=== PATIENT | female | born 1950 | race Caucasian/White ===

== ENCOUNTER 2019-01-17 08:43 | Inpatient (IN) | payer MEDICARE, BC ==
--- NOTE | 2019-01-14 11:31 | HP ---
DATE OF SURGERY: 01/17/2019 ANTICIPATED PROCEDURES: 1) Low anterior resection. 2) Completion colonoscopy. HISTORY OF PRESENT ILLNESS: The patient has rectovaginal fistula. Referred by Dr. Euceda. PAST MEDICAL HISTORY: ALLERGIES: PENICILLIN, SULFA. MEDICATIONS: Metformin, Bystolic. PAST SURGICAL HISTORY: Total hysterectomy 2006. Cholecystectomy 2003. SOCIAL HISTORY: Negative. FAMILY HISTORY: Negative. REVIEW OF SYSTEMS: Prediabetic. Hypertension. PHYSICAL EXAMINATION: VITAL SIGNS: Normal. CHEST: Clear. COR: Regular. ABDOMEN: Satisfactory. LAB DATA AND TESTS: Barium enema performed inserted balloon tip insufflated, diluted Gastrografin. A rectovaginal fistula was identified right of midline. Fistula precludes further distention of the entire colon as the preference was going through the fistula ultimately the vagina. Multiple focal intraluminal narrowing seen of the mid descending colon, sigmoid possibly due to scarring or mass or not completely filled. This was performed at [facility] read by Dr. Donald Coello. IMPRESSION: Rectovaginal fistula. PLAN: Surgical intervention, surgical resection is indicated and completion colonoscopy is indicated.
[~2019-01-17 08:43] MED LIST: CLINDAMYCIN-D5W 900 MG/50 ML*** 900 MG/50 ML BAG IV SCH; ENTEREG 12 MG PO SCH; Lactated Ringers 1,000 ML IV ONE; Levofloxacin 500MG/100ML D5W 500 MG/100 ML BAG IV ONE; Levofloxacin 500MG/100ML D5W 500 MG/100 ML BAG IV SCH
[2019-01-17] MEDS ORDERED: Lactated Ringers 1,000 ML IV SCH (09:00)
[2019-01-17 10:00] LABS: ABO TYPING O; Antibody Screen NEGATIVE (NEGATIVE); RH TYPING POSITIVE
[2019-01-17] MEDS ORDERED: Levofloxacin 500MG/100ML D5W 500 MG/100 ML BAG IV SCH (10:00)
[2019-01-17] MEDS ORDERED: CLINDAMYCIN-D5W 900 MG/50 ML*** 900 MG/50 ML BAG IV SCH (10:00)
[2019-01-17] MEDS ORDERED: ENTEREG 12 MG PO SCH (10:30)
[2019-01-17] MEDS ORDERED: Lactated Ringers 1,000 ML IV ONE (12:02)
[2019-01-17 13:42] LABS: Appearance CLOUDY (CLEAR); Bacteria MODERATE /HPF (NEGATIVE); Bilirubin NEGATIVE (NEGATIVE); Blood NEGATIVE Ery/ul (0-5); Epithelial Cells RARE /HPF (FEW); Glucose NEGATIVE (NEGATIVE); Hyaline Casts >50 /LPF (0-2); Ketones NEGATIVE (NEGATIVE); Leukocyte Esterase NEGATIVE (NEGATIVE); Mucus MANY /HPF (NEGATIVE); Nitrite NEGATIVE (NEGATIVE); Protein,Urine Dip 30 (Negative); Specific Gravity 1.015 (1.005-1.025); Urobilinogen NEGATIVE mg/dL (0-1)
[2019-01-17] MEDS ORDERED: Morphine PCA 1 MG/ML 30 ML IV PRN (13:45)
[2019-01-17] MEDS ORDERED: TYLENOL 325 MG PO PRN (13:46)
[2019-01-17] MEDS ORDERED: Zofran 4 MG/2 ML VIAL IVIM PRN (13:47)
[2019-01-17] MEDS ORDERED: FEVERALL 650 MG RC PRN (13:47)
[2019-01-17] MEDS ORDERED: BRIDION 200MG/2ML IV ONE (13:58)
[2019-01-17] MEDS ORDERED: Marcaine Mpf 0.5% Vial 30 Ml IV ONE (13:58)
[2019-01-17] MEDS ORDERED: Zofran 4 MG/2 ML VIAL IV ONE (13:58)
[2019-01-17] MEDS ORDERED: DIPRIVAN 200 MG/20 ML IV ONE (13:58)
[2019-01-17] MEDS ORDERED: Zemuron 100 MG/10 ML IV ONE (13:58)
[2019-01-17] MEDS: D5W/0.45NS W/ 20mEq KCl 1000 ML 1,000 ML IV SCH ×2 (14:04→17:19)
[2019-01-17] MEDS: MEFOXIN 1 Gm/ D5W 50 Ml** 1 G/50 ML ML IV SCH ×2 (14:11→21:50)
[2019-01-17] MEDS ORDERED: DILAUDID 2 MG INJECTION IV ONE (14:19)
[2019-01-17] MEDS ORDERED: SUBLIMAZE 250 MCG/5 ML IJ ONE (14:19)
[2019-01-17] MEDS ORDERED: Versed 2 MG/2 ML Injection IV ONE (14:19)
[2019-01-17 14:44] LABS: Hemoglobin 13.2 gm/dl (12.0-16.0)
[2019-01-17] MEDS ORDERED: Sodium Chloride 0.9% 1000 ML 1,000 ML IV STA (15:31)
[2019-01-17] MEDS ORDERED: Sodium Chloride 0.9% 1000 ML 1,000 ML ONE (15:34)
[2019-01-17] MEDS: Bystolic 5 MG PO SCH (21:59)
[2019-01-17] MEDS: Glucophage 500 MG PO SCH (21:59)
[2019-01-17] MEDS: FISH OIL 1,000 MG CAPSULE PO SCH (21:59)
[2019-01-17] MEDS ORDERED: NON-FORMULARY ITEM (Nebivolol Hcl [Bystolic] 5 MG) PO SCH (22:00)
[2019-01-18] MEDS: MEFOXIN 1 Gm/ D5W 50 Ml** 1 G/50 ML ML IV SCH ×4 (02:10→20:24)
[2019-01-18] MEDS: D5W/0.45NS W/ 20mEq KCl 1000 ML 1,000 ML IV SCH ×2 (04:27→13:24)
[2019-01-18 05:04] LABS: Hematocrit 35.9 % (35-47); Hemoglobin 11.8 gm/dl (12.0-16.0); Mean Cell Volume 100.3 fl (78-100); Mean Corpuscular Hgb Concent. 32.9 g/dl (32-36); Mean Platelet Volume 10.5 fl (6-9.5); Platelet Count 248 K/mm3 (150-450); Red Blood Count 3.58 M/mm3 (4.1-5.4); White Blood Count 17.6 K/mm3 (4.0-10.5)
[2019-01-18 05:25] LABS: BLOOD UREA NITROGEN 9 mg/dL (7-17); CHLORIDE 104 mmol/L (98-107); Calcium 8.5 mg/dL (8.4-10.2); Carbon Dioxide 24 mmol/L (22-30); Creatinine 1 0.57 mg/dL (0.52-1.04); Glucose 193 mg/dL (74-106); Potassium 4.6 mmol/L (3.5-5.1); SODIUM 137 mmol/L (137-145)
[2019-01-18 05:58] LABS: Mean Corpuscular Hemoglobin 32.9 pg (26-32)
[2019-01-18] MEDS: ENOXAPARIN SODIUM SQ SCH (09:03)
[2019-01-18] MEDS: TYLENOL SUSPENSION 160 MG/5 ML PO PRN ×2 (09:31→14:42)
[2019-01-18] MEDS: ENTEREG 12 MG PO SCH ×2 (09:42→21:51)
--- NOTE | 2019-01-18 10:19 | OP ---
SURGERY DATE/TIME: 01/17/2019 1015 PREOPERATIVE DIAGNOSIS: Colovaginal fistula. POSTOPERATIVE DIAGNOSIS: Colovaginal fistula. PROCEDURES: 1) Left hemicolectomy with colorectal anastomosis. 2) Serosal repair of cecum. 3) Interoperative pre-anastomosis and post-anastomosis partial colonoscopy. SURGEON: Clovis Gómez M.D. ANESTHESIA: General. Toradol 300. DRAINS: One. COMPLICATIONS: None. CONDITION: Stable. INDICATION: The patient clinically has colovaginal fistula and had this demonstrated by barium enema. DESCRIPTION OF PROCEDURE: She was taken to surgery. General anesthetic. Routine prep and drape. Full bowel prep had been performed. Brink catheter was already in place. It was left in place. She was left in stirrups. Thrombogards present. Omid warmer present. Brink catheter visible. A lower midline incision was made. Immediately upon entry that this was extensive disease and extended up to the mid sigmoid colon and therefore it needed extension of the incision. The incision extended 3 inches above the umbilicus. There was basically no mesentery from the mid descending down to the rectum. It was shrunken, contracted and plastered against the pelvic side wall. It was knuckled once down in the pelvis and one of these knuckles were up against the left vaginal cuff. The cecum was also knuckled against the left vaginal cuff along with the terminal ileum. These adhesions were taken down. There was not a clear fistula site but I certainly feel that this is where there fistula had been. The serosa of the cecum was repaired and the cecum ileum was up, was able to be mobilized to where it was up in the right lower quadrant laterally. The sigmoid loop was densely stuck here and it was taken down. Again, there is not visible fistula but the amount of scar tissue thickened here was very intense. The colon was mobilized from the middle colic vessels. The omentum was taken off. It was necessary to take this off. The omentum was actually markedly adhesed in the mid sigmoid and even down to the mid descending and upper sigmoid. The splenic flexure totally taken down. The colon rolled medial. Left ureteral area avoided. Mesentery taken over top of the left ureter at the pelvic brim. Mesentery taken down to the presacral plane. Presacral plane was open and the specimen was transected just a little bit on the rectal side. A formal left hemicolectomy quickly then performed. The scope was placed in the vagina. No air leak was demonstrated. There was a fairly inflammatory upper vaginal cuff however. The scope was stuck in the stapled off rectum and no air leak was demonstrated. There was no insufflation of the rectum coming from the vaginal insufflation either. An end-to-side was necessary to use the 25 EEA, 25 EEA anvil was placed. RENU was stapled off leaving a 2 cm cul-de-sac to the right. It was assembled. The EEA came out almost just a little anteriorly almost at the end of the rectum. It came down nicely. There was nothing in between. It was placed 75% of the green zone and it was fired. It was rotated half a turn and pulled out easily. Rings were intact. Scope was re-introduced. The transverse colon was pinched off. Fluid was placed in the pelvis and there was no air leak. The anastomosis looked excellent. The right blind cul-de-sac was satisfactory. There was minimal rectal cul-de-sac. A 10 JAMILA was placed down the left side. The field was adequately dry. The clean area was dry. Small bowel was laid back in organized fashion. The drain secured. Intra-abdominal closed with loop 0 PDS. Subcutaneous tissue irrigated and closed with anuj and anthony. Brink had 50 cc of slightly dark, clear urine. The patient tolerated the procedure satisfactorily. Findings were noted and they were discussed with the in the waiting room. The patient was sent to the recovery room in stable condition.
[2019-01-18] MEDS: FISH OIL 1,000 MG CAPSULE PO SCH (21:50)
[2019-01-18] MEDS: Glucophage 500 MG PO SCH (21:50)
[2019-01-18] MEDS: Bystolic 5 MG PO SCH (21:51)
[2019-01-19] MEDS: D5W/0.45NS W/ 20mEq KCl 1000 ML 1,000 ML IV SCH ×2 (01:35→18:00)
[2019-01-19] MEDS: MEFOXIN 1 Gm/ D5W 50 Ml** 1 G/50 ML ML IV SCH ×4 (01:36→20:11)
[2019-01-19] MEDS: TYLENOL SUSPENSION 160 MG/5 ML PO PRN (06:54)
[2019-01-19] MEDS: ENOXAPARIN SODIUM SQ SCH (10:56)
[2019-01-19] MEDS: ENTEREG 12 MG PO SCH ×2 (10:56→21:05)
[2019-01-19] MEDS: Glucophage 500 MG PO SCH (21:04)
[2019-01-19] MEDS: Bystolic 5 MG PO SCH (21:04)
[2019-01-19] MEDS: FISH OIL 1,000 MG CAPSULE PO SCH (21:05)
[2019-01-20] MEDS ORDERED: NORCO 5/325 MG PO PRN (00:01)
[2019-01-20] MEDS: MEFOXIN 1 Gm/ D5W 50 Ml** 1 G/50 ML ML IV SCH ×4 (02:56→19:41)
[2019-01-20] MEDS: D5W/0.45NS W/ 20mEq KCl 1000 ML 1,000 ML IV SCH ×2 (05:01→17:23)
[2019-01-20 05:55] LABS: Hematocrit 31.4 % (35-47); Hemoglobin 9.9 gm/dl (12.0-16.0); Mean Cell Volume 103.6 fl (78-100); Mean Corpuscular Hgb Concent. 31.5 g/dl (32-36); Mean Platelet Volume 10.3 fl (6-9.5); Platelet Count 244 K/mm3 (150-450); Red Blood Count 3.03 M/mm3 (4.1-5.4); Red Cell Distribution Width 13.3 % (11.5-14.0); White Blood Count 14.4 K/mm3 (4.0-10.5)
[2019-01-20 06:06] LABS: Mean Corpuscular Hemoglobin 32.6 pg (26-32)
[2019-01-20] MEDS: ENTEREG 12 MG PO SCH ×2 (09:03→22:57)
[2019-01-20] MEDS: ENOXAPARIN SODIUM SQ SCH (09:03)
[2019-01-20] MEDS: FISH OIL 1,000 MG CAPSULE PO SCH (22:57)
[2019-01-20] MEDS: Glucophage 500 MG PO SCH (22:57)
[2019-01-20] MEDS: Bystolic 5 MG PO SCH (22:57)
[2019-01-21] MEDS: MEFOXIN 1 Gm/ D5W 50 Ml** 1 G/50 ML ML IV SCH ×2 (02:42→08:10)
[2019-01-21] MEDS: D5W/0.45NS W/ 20mEq KCl 1000 ML 1,000 ML IV SCH (04:55)
[2019-01-21] MEDS: ENTEREG 12 MG PO SCH (09:37)
[2019-01-21] MEDS: ENOXAPARIN SODIUM SQ SCH (09:37)
[2019-01-21 13:44] VITALS: BP 149/69; PULSE 78; O2SAT 96
== END 2019-01-21 13:55 | disposition home or self-care (01) | DRG 329 ==
LOC: MED SURG 08:43 → ICU 15:45 → EDSTATUS 16:10 → MED SURG 01-18 09:06
PROVIDERS: ADMIT Surgery; ATTEND Surgery
PROC: 0DTG0ZZ Resection of Left Large Intestine, Open Approach (ICD-10-PCS; principal; 2019-01-17)
PROC: 0DQH0ZZ Repair Cecum, Open Approach (ICD-10-PCS; 2019-01-17)
PROC: 0DJD8ZZ Inspection of Lower Intestinal Tract, Via Natural or Artificial Opening Endoscopic (ICD-10-PCS; 2019-01-17)
DX: N82.3 Fistula of vagina to large intestine (principal); K65.8 Other peritonitis; K57.20 Diverticulitis of large intestine with perforation and abscess without bleeding; I10 Essential (primary) hypertension; R73.03 Prediabetes; Z79.899 Other long term (current) drug therapy
CPT/HCPCS: 36415; 64488; 76942; 80048; 81001; 82962; 83036; 84134; 85014; 85018; 85027; 86850; 86900; 86901; 87086; 94760; 94762; J0694; J1170; J1650; J1956; J2250; J2405; J2704; J3010; L0625; A9270-GY